=== PATIENT | female | born 1965 | race Caucasian/White ===

== ENCOUNTER → 2018-10-19 11:59 | Outpatient (CLI) | payer BC, SELFPAY ==
--- NOTE | 2018-10-19 | CER_PTH ---
PATIENT: EULALAI SANTA [facility] U#:[id number] AGE/SX: 60/F ROOM: RE10/19/[address]: Dr. Willie Chan MD : 1965 BED: DIS: SPEC #: [id number] RECD: 10/19/18 13:15 STATUS: SUSY ESTIVEN #: [id number] LINNEA: 10/19/18 00:[address]: Willie Chan DEPT: SURGICAL PATHOLOGY RECD BY: Anil Parrish ENTERED: 10/19/18 13:16 SP TYPE: CERV OTHR DR: No Primary Care Phys Tissues: A - Uterine cervix, NOS B - Endocervical Procedures: Surgery Specimen Level IV HEADER OPERATION: Colposcopy PRE-OP DIAGNOSIS: R87.810 TISSUE SUBMITTED: A - 6 o'clock, B - ECC MICROSCOPIC DIAGNOSIS A. Cervix at 6 o'clock, biopsy: No pathologic diagnosis. No evidence of dysplasia. B. Endocervix, curettings: Rare strips of benign superficial endocervix. No evidence of dysplasia. AM:shant 10/22/18 MICROSCOPIC DESCRIPTION Slides are reviewed. GROSS DESCRIPTION A - Received in fixative is one container labeled with the patient's name and designated 6 o'clock. The specimen consists of two irregular fragments of light goodwin soft tissue that in aggregate measure 0.4 x 0.4 x 0.1 cm. The specimen is totally submitted in one cassette. B - Received in fixative is one container labeled with the patient's name and designated ECC. The specimen consists of a few fragments of mucoid tissue. The entire specimen is submitted for cell block preparation. / IHSAN:shant 10/19/18 TC:5 CPT: 99648 x2
== END ==
PROVIDERS: Referring Provider Obstetrics & Gynecology; Visit Provider Obstetrics & Gynecology
DX: R87.810 Cervical high risk human papillomavirus (HPV) DNA test positive (principal)
CPT/HCPCS: 88305

== ENCOUNTER → 2019-05-10 16:25 | Outpatient (CLI) | payer BC, SELFPAY ==
[2019-05-17 11:26] LABS: HPV APTIMA, High Risk Negative (Negative)
== END ==
PROVIDERS: Visit Provider Obstetrics & Gynecology
DX: Z12.4 Encounter for screening for malignant neoplasm of cervix (principal)
CPT/HCPCS: 88175; G0145